=== PATIENT | female | born 1990 | race Caucasian/White ===

== ENCOUNTER 2021-05-24 07:01 | Inpatient (IN) | payer OTHER ==
[~2021-05-24] VITALS: Ht 160.1 cm; Wt 69.5 kg
[2021-05-24] VITALS (16 sets, daily range): BP systolic 98–130; BP diastolic 58–666; PULSE 59–79; TEMP 98–99.5
[~2021-05-24 07:01] MED LIST: ALBUTEROL0.09 MG/A1 IH; BCP TD; CEPHALEXIN500 M1 PO; CLINDAMYCIN300 MG PO; IMPLANON68 MG ID; LORTAB 5/500 501 TAB PO; MVI; NAPROSYN500 MG PO; NO HOME MEDICATIONS; PHENERGAN 25 TA25 MG PO; PREDNISONE20 MG PO; PRENATAL1 TA1 PO; PROAIR HFA0.09 MG/AC IH; TAMIFLU 75MG75 MG PO; ZITHROMAX Z PA250 MG PO
--- NOTE | 2021-05-24 07:05 | NUR ---
39.2, G3L2 here for scheduled repeat section. Ambulatory to 213, oriented to room and plan fo care. Changes into clean gown. Reports normal movement, denies any LOF, VB, or regular contractions. EFM explained and placed x2. 0725- IV to left hand. Routine labs obtained. IVF infusing. Consent forms exlpained and signed. Assessment completed. VS obtained.
[2021-05-24 07:46] LABS: BASO % 0.3 % (0.0-2.0); EOS # 0.1 (0.0-0.7); EOS % 1.1 % (0-4.0); GRAN # 4.6 (1.4-6.5); GRAN % 65.3 % (42.2-75.2); HEMOGLOBIN 11.1 g/dl (12.5-16.0); LYMPH # 1.8 (1.2-3.4); MEAN CELL VOLUME 83 fl (80.0-100.0); MEAN CORPUSCULAR HEMOGLOBIN 27 pg (27.0-31.0); MEAN CORPUSCULAR HGB CONC 33 g/dl (33.0-37.0); MEAN PLATELET VOLUME 11.5 fl (7.4-10.4); MONO # 0.5 (0.1-0.6); MONO % 7.6 % (1.7-9.3); PLATELET COUNT 218 K/mm3 (130-400); RED BLOOD COUNT 4.07 M/mm3 (4.10-5.30); REDCELL DISTRIBUTION WIDTH-CV 12.8 % (11.5-14.5)
[2021-05-24 07:47] LABS: HEMATOCRIT 33.8 % (37.0-47.0)
[2021-05-24] MEDS ORDERED: PRENATAL TABLET PO (07:48)
--- NOTE | 2021-05-24 09:40 | NUR ---
Patient to PACU via bed. Monitors applied. Fundus firm, midline and bleeding minimal. IV patent, and patterson to DD. Plan of care reviewed, patient verbalizes understanding.
--- NOTE | 2021-05-24 20:30 | NUR ---
PT EXPRESSES THAT SHE WOULD RATHER NOT TAKE PERCOCET- DUE TO HER BEING IN RECOVERY. OB CALLED (CARLOS A) TO DISCUSS OPTIONS FOR BETTER PAIN CONTROL 800 MG SWITCHED TO 600 MG AND 650 MG OF TYLENOL SWITCHED TO 1 GM OF TYLENOL. PLAN REVIEWED WITH PT. WARM BLANKET AND OR ICE PACK OFFERED- BENADRYL ALSO OFFERED- PT DENIES AT THIS TIME- PT IS REPOSITIONED ON HER SIDE AND BINDER IS REMOVED.
[2021-05-25 03:30] VITALS: BP 103/66; PULSE 64; TEMP 97.9
[2021-05-25 07:06] VITALS: BP 114/64; PULSE 78; TEMP 98.1
--- NOTE | 2021-05-25 13:24 | NUR ---
Initial visit attempt; Family resting. Oxyacetylene Cutter left card of congratulations and God's blessings for the of their son and information regarding the availability of spiritual care at [facility].
[2021-05-25 16:45] VITALS: BP 116/74; PULSE 76; TEMP 98.8
[2021-05-25 20:00] VITALS: BP 116/76; PULSE 72; TEMP 98.8
[2021-05-26] MEDS ORDERED: MOTRIN 600600 MG/TAB PO (07:35)
[2021-05-26] MEDS ORDERED: ULTRAM 50MG TAB50 MG PO (07:36)
[2021-05-26 08:12] VITALS: BP 112/64; PULSE 78; TEMP 98.1
--- NOTE | 2021-05-26 10:08 | NUR ---
Initial visit; Parents thanked Battery Plate Assembler for offering congratulations and God's blessings for the of their son. Battery Plate Assembler thanked family for choosing [facility].
[2021-05-26] MEDS ORDERED: PERCOCET 325 MG1 TA2 PO (11:50)
== END 2021-05-26 14:30 | disposition home or self-care (01) | DRG 788 ==
LOC: OB 07:01
PROVIDERS: ADMIT Obstetrics & Gynecology
PROC: 10D00Z1 Extraction of Products of Conception, Low, Open Approach (ICD-10-PCS; principal; 2021-05-24)
DX: O34.211 Maternal care for low transverse scar from previous cesarean delivery (principal); O99.334 Smoking (tobacco) complicating childbirth; F17.210 Nicotine dependence, cigarettes, uncomplicated; Z3A.39 39 weeks gestation of pregnancy; Z37.0 Single live birth; Z88.0 Allergy status to penicillin
CPT/HCPCS: J0690; J1885; J2175; J2370; J2405; J2590; J7120